=== PATIENT | female | born 1945 | race Caucasian/White ===

== ENCOUNTER 2022-10-14 21:30 | Observation (INO) | payer MEDICARE, MEDICAID ==
[~2022-10-14] VITALS: Ht 165.1 cm; Wt 79.5 kg
[~2022-10-14 21:30] MED LIST: temazepam 15mg capsule PO PRN
[2022-10-14 22:10] LABS: BASOPHILS # (AUTO) 0.1 X10'3 (0-0.2); BASOPHILS % (AUTO) 0.7 % (0-1); EOSINOPHILS # (AUTO) 0.1 X10'3 (0-0.9); EOSINOPHILS % (AUTO) 1.5 % (0-6); HEMATOCRIT 40.8 % (35.0-45.0); HEMOGLOBIN 13.5 g/dl (12.0-16.0); LYMPHOCYTES # (AUTO) 2.3 X10'3 (1.1-4.8); LYMPHOCYTES % (AUTO) 28.4 % (21-51); MEAN CORPUSCULAR HEMOGLOBIN 28.5 PG (27.0-31.0); MEAN CORPUSCULAR VOLUME 86.3 FL (78-98); MEAN PLATELET VOLUME 7.3 FL (7.4-10.4); MONOCYTES # (AUTO) 0.8 X10'3 (0-0.9); MONOCYTES % (AUTO) 9.5 % (2-12); NEUTROPHILS # (AUTO) 4.9 X10'3 (1.8-7.7); NEUTROPHILS % (AUTO) 59.9 % (42-75); PLATELET COUNT 268 X10'3 (140-440); RED BLOOD COUNT 4.73 X10'6 (4.20-5.60); RED CELL DISTRIBUTION WIDTH 14.5 % (11.5-14.5); WHITE BLOOD COUNT 8.2 X10'3 (4.5-11.0)
[2022-10-14 22:17] LABS: APTT 33 SECONDS (22-32); PROTHROMBIN TIME 11.2 SECONDS (9.0-12.0)
[2022-10-14 22:18] LABS: ALANINE AMINOTRANSFERASE 22 U/L (12-78); ALBUMIN 3.6 G/DL (3.4-5.0); ALKALINE PHOSPHATASE 88 IU/L (46-116); ANION GAP 8 (8-16); ASPARTATE AMINO TRANSFERASE 16 U/L (10-37); BILIRUBIN,TOTAL 0.3 MG/DL (0.1-1.0); BLOOD UREA NITROGEN 22 MG/DL (7-18); CALCIUM 9.5 MG/DL (8.5-10.1); CHLORIDE 105 MMOL/L (99-107); GLUCOSE 125 MG/DL (70-104); POTASSIUM 4.2 MMOL/L (3.5-5.1); SODIUM 142 MMOL/L (135-145); TOTAL CARBON DIOXIDE 29.5 MMOL/L (24-32); TOTAL PROTEIN 7.2 G/DL (6.4-8.2); eCRCL 39 ML/MIN; eGFR 48 ML/MIN
[2022-10-14 22:26] LABS: MAGNESIUM 1.8 MG/DL (1.5-2.4); PRO BRAIN NATRIURETIC PEPTIDE 1354 PG/ML (0-450)
[2022-10-14] MEDS ORDERED: acetaminophen 325mg tablet PO PRN ×2 (23:35)
[2022-10-14] MEDS ORDERED: potassium Cl 20 mEq SR tablet PO PRN ×2 (23:35)
[2022-10-14] MEDS ORDERED: ondansetron/PF 4mg/2ml inj IV PRN (23:35)
[2022-10-14] MEDS ORDERED: potassium Cl 40MEQ/1/2NS 520ml 520 ML IV PRN (23:35)
[2022-10-14] MEDS ORDERED: magnesium 4gm in 100ml NS 100 ML IV PRN (23:35)
[2022-10-14] MEDS ORDERED: magnesium Cl slow-release 64mg tablet PO PRN (23:35)
[2022-10-14] MEDS ORDERED: normal saline 1000ml 1,000 ML IV SCH (23:35)
[2022-10-14] MEDS ORDERED: magnesium 2GM in 50ml NS 50 ML IV PRN (23:35)
[2022-10-15] MEDS ORDERED: FENT-90 TD (00:14)
[2022-10-15] MEDS ORDERED: FENT1PAT10 TD (00:14)
[2022-10-15] MEDS ORDERED: HYDR-3973 PO (00:15)
[2022-10-15] MEDS ORDERED: OMEP20CA16 PO (00:17)
[2022-10-15] MEDS ORDERED: CARSR60C PO (00:18)
[2022-10-15] MEDS ORDERED: POTA-188 PO (00:19)
[2022-10-15] MEDS ORDERED: EST1T PO (00:20)
[2022-10-15] MEDS ORDERED: TRIA1TAB3 PO (00:21)
[2022-10-15] MEDS ORDERED: CYCL-394 PO (00:22)
[2022-10-15] MEDS ORDERED: APIX5TAB3 PO (00:23)
[2022-10-15] MEDS ORDERED: CLON-528 PO (00:25)
[2022-10-15] MEDS ORDERED: diltiazem CD 180mg cap (once-daily) PO ONE (00:35)
[2022-10-15] MEDS ORDERED: cyclobenzaprine 10mg tablet PO ONE ×2 (00:35→00:40)
[2022-10-15] MEDS ORDERED: diltiazem CD 120mg capsule (once-daily) PO ONE (00:40)
[2022-10-15 02:50] LABS: BASOPHILS % (AUTO) 0.5 % (0-1); EOSINOPHILS % (AUTO) 0.5 % (0-6); HEMATOCRIT 37.2 % (35.0-45.0); LYMPHOCYTES # (AUTO) 2.2 X10'3 (1.1-4.8); LYMPHOCYTES % (AUTO) 28.6 % (21-51); MEAN CORPUSCULAR HEMOGLOBIN 27.8 PG (27.0-31.0); MEAN CORPUSCULAR HGB CONC 32.2 g/dL (33.0-36.5); MEAN CORPUSCULAR VOLUME 86.5 FL (78-98); MEAN PLATELET VOLUME 7.3 FL (7.4-10.4); MONOCYTES # (AUTO) 0.5 X10'3 (0-0.9); MONOCYTES % (AUTO) 6.8 % (2-12); NEUTROPHILS # (AUTO) 4.9 X10'3 (1.8-7.7); NEUTROPHILS % (AUTO) 63.6 % (42-75); PLATELET COUNT 253 X10'3 (140-440); RED BLOOD COUNT 4.29 X10'6 (4.20-5.60); RED CELL DISTRIBUTION WIDTH 13.9 % (11.5-14.5); WHITE BLOOD COUNT 7.7 X10'3 (4.5-11.0)
[2022-10-15] MEDS ORDERED: DICL100G59 TOP (02:56)
[2022-10-15] MEDS ORDERED: CHOL100046 PO (02:57)
[2022-10-15 02:59] LABS: ALANINE AMINOTRANSFERASE 19 U/L (12-78); ALBUMIN 3.1 G/DL (3.4-5.0); ALBUMIN/GLOBULIN RATIO 0.9 (1.1-1.5); ALKALINE PHOSPHATASE 79 IU/L (46-116); ANION GAP 8 (8-16); ASPARTATE AMINO TRANSFERASE 13 U/L (10-37); BILIRUBIN,TOTAL 0.2 MG/DL (0.1-1.0); BLOOD UREA NITROGEN 21 MG/DL (7-18); BUN/CREATININE RATIO 23.3 (10.0-20.0); CHLORIDE 104 MMOL/L (99-107); GLUCOSE 132 MG/DL (70-104); POTASSIUM 3.9 MMOL/L (3.5-5.1); SODIUM 140 MMOL/L (135-145); TOTAL CARBON DIOXIDE 28.2 MMOL/L (24-32); TOTAL PROTEIN 6.4 G/DL (6.4-8.2); eCRCL 47 ML/MIN; eGFR 61 ML/MIN
[2022-10-15] MEDS ORDERED: DICLOFENAC SODIUM 1% gel 1 APPLIC APPLIC TP PRN (05:10)
[2022-10-15 06:10] LABS: BILIRUBIN,URINE NEGATIVE (Neg); CLARITY,URINE CLEAR (Clear); COLOR,URINE YELLOW (Yellow); GLUCOSE, URINE NEGATIVE (Neg); KETONES,URINE NEGATIVE (Neg); LEUKOCYTE ESTERASE ,URINE NEGATIVE (Neg); NITRITES, URINE NEGATIVE (Neg); OCCULT BLOOD,URINE NEGATIVE (Neg); PROTEIN,URINE NEGATIVE (Neg); UROBILINOGEN,URINE 0.2 E.U/dL (0.2-1.0)
[2022-10-15 06:11] LABS: UA COLLECTION TYPE CLN CATCH MIDSTREAM
[2022-10-15 07:00] VITALS: BP 148/74; PULSE 65; RESP 16; TEMP 97.7; O2SAT 96
[2022-10-15] MEDS ORDERED: pantoprazole 40mg Tablet.DR PO SCH (07:30)
[2022-10-15] MEDS ORDERED: apixaban 5mg tablet PO SCH (08:00)
[2022-10-15] MEDS ORDERED: diltiazem SR 60mg capsule (twice daily) PO SCH (08:00)
[2022-10-15 11:00] VITALS: BP 143/68; PULSE 72; RESP 16; TEMP 97.6; O2SAT 91
[2022-10-15 12:47] LABS: FREE T4 (FREE THYROXINE) 0.98 NG/DL (0.73-1.40); MAGNESIUM 1.7 MG/DL (1.5-2.4); PHOSPHORUS 3.6 MG/DL (2.3-4.5); THYROID STIMULATING HORMONE 0.41 ulU/ml (0.34-4.50)
--- NOTE | 2022-10-15 15:05 | NUR ---
Patient discharged home to [place], with friend. IV dc'd and tele dc'd. All belongings taken from room. Patient appears appropriate for discharge. No pharmacy meds. Pt states she has felt fine since she has been here.
[2022-10-16] MEDS ORDERED: fentaNYL 12 MCG/hour patch.TD72 TD SCH (08:00)
[2022-10-16] MEDS ORDERED: fentaNYL 50MCG/HOUR patch.TD72 TD SCH (08:00)
== END 2022-10-15 13:40 | disposition home or self-care (01) ==
LOC: ER 21:30 → ED HOLD 23:40 → PCU 3S 10-15 07:44
PROVIDERS: ADMIT Internal Medicine; ATTEND Family Medicine
DX: I48.20 Chronic atrial fibrillation, unspecified (principal); I48.0 Paroxysmal atrial fibrillation; I20.0 Unstable angina; N17.9 Acute kidney failure, unspecified; I10 Essential (primary) hypertension; G89.4 Chronic pain syndrome; M54.9 Dorsalgia, unspecified; Z79.01 Long term (current) use of anticoagulants; Z79.899 Other long term (current) drug therapy
CPT/HCPCS: 36415; 71045; 71046; 80053; 81003; 83735; 83880; 84100; 84439; 84443; 84484; 85025; 85610; 85730; 93005; 93306; 96360; 96361; 99285; G0378; J7030